=== PATIENT | female | born 1940 | race Caucasian/White ===

== ENCOUNTER 2018-08-05 07:01 | Day surgery (SDC) | payer OTHER, MEDICARE ==
[2018-07-29 11:12] VITALS: BMI 24.0
[2018-08-05] MEDS ORDERED: PHENYLEPHRINE 2.5% OPHTH SOLN 15 ML BOTTLE ONE (07:26)
[2018-08-05] MEDS ORDERED: CYCLOPENTOLATE HCL 1% OPHTH SOLN 2 ML BOTTLE ONE (07:26)
[2018-08-05] MEDS ORDERED: TROPICAMIDE 1% OPHTH SOLN 15 ML BOTTLE ONE (07:26)
[2018-08-05] MEDS ORDERED: GENTAMICIN SULFATE 0.3% OPHTHALMIC (EYE DROPS) 5ML BOTTLE ONE (07:26)
[2018-08-05] MEDS: CYCLOPENTOLATE HCL 1% OPHTH SOLN 2 ML BOTTLE OS SCH ×5 (08:15→08:35)
[2018-08-05] MEDS: GENTAMICIN SULFATE 0.3% OPHTHALMIC (EYE DROPS) 5ML BOTTLE OS SCH ×5 (08:15→08:35)
[2018-08-05] MEDS: KETOROLAC TROMETHAMINE 0.5% EYE DROP 1 DROP DROPS OS SCH ×5 (08:15→08:35)
[2018-08-05] MEDS: PHENYLEPHRINE 2.5% OPHTH SOLN 15 ML BOTTLE OS SCH ×5 (08:15→08:35)
[2018-08-05] MEDS: TROPICAMIDE 1% OPHTH SOLN 15 ML BOTTLE OS SCH ×5 (08:15→08:35)
[2018-08-05] MEDS ORDERED: MIDAZOLAM HCL 2 MG/2 ML SINGLE DOSE VIAL ONE (09:10)
[2018-08-05] MEDS ORDERED: TETRACAINE 0.5% OPHTH SOLN 2 ML BOTTLE ONE (09:11)
[2018-08-05] MEDS ORDERED: EPI-SHUGARCAINE (EPINEPHRINE 0.025% & LIDOCAINE-PF 0.75%) 4ML ONE (09:11)
[2018-08-05] MEDS ORDERED: POVIDONE-IODINE 5% OPHTHALMIC PREP 30 ML SOLUTION ONE (09:11)
[2018-08-05] MEDS ORDERED: ACETYLCHOLINE 1:100 INTRA-OCUL 20 MG/2 ML KIT ONE (09:12)
[2018-08-05] MEDS ORDERED: ONDANSETRON 4 MG/2 ML VIAL IVPUSH PRN (10:42)
[2018-08-05] MEDS ORDERED: ACETAMINOPHEN 325 MG TABLET (FP) PO PRN (10:45)
[2018-08-05] MEDS ORDERED: ACETAMINOPHEN 325 MG TABLET (FP) ONE (10:58)
--- NOTE | 2018-08-05 11:18 | OP ---
DATE OF OPERATION: 08/05/2018 PREOPERATIVE DIAGNOSIS: Cataract, left eye. POSTOPERATIVE DIAGNOSIS: Cataract, left eye. PROCEDURE: Cataract extraction via phacoemulsification with insertion of posterior chamber lens implant, left eye. SURGEON: Abe Queen MD PET CARE ASSISTANT: Mago Flores MD ANESTHESIA: Topical with sedation. ESTIMATED BLOOD LOSS: Less than 1 mL. COMPLICATIONS: None. SPECIMENS: None. DESCRIPTION OF PROCEDURE: The patient was identified in the holding area. After all risks, benefits, and alternatives were explained to the patient, informed consent was obtained. The left eye was marked with a marking pen. The patient then entered the operating room on an eye stretcher. After a formal time-out was performed, the patient was instructed to sit up, and topical tetracaine eye drops were instilled onto the left eye. The left eye was then properly marked for the cardinal axes of astigmatism using a marking pen and a Toric Bubble Marker. The patient then was instructed to lie back down. The left eye was then prepped and draped in the usual sterile fashion. An eyelid speculum was placed beneath the eyelids of the left eye. An inferotemporal paracentesis incision was created using a 15-degree blade, prior to this the eye was marked using a Toric Marker for the axis of astigmatism as well as a Toric Dial. It was noted to be 10 degrees. Then, preservative-free epinephrine and preservative-free lidocaine was then injected into the anterior chamber. A 2.4-mm keratome blade was then used to make a superotemporal incision. Viscoelastic was then injected into the anterior chamber. A 360-degree continuous curvilinear capsulorrhexis was then created using bent cystotome and Utrata forceps. Hydrodissection was performed using balanced saline solution on a cannula. Phacoemulsification was introduced to disassemble and remove the nucleus in its entirety. Irrigation/aspiration was then used to remove any remaining cortical material from the eye. The capsular bag was reformed using viscoelastic. An Will model SV25T3 with a power of 25.5 diopters, serial number [id number], was inspected and found to be defect-free and injected into the capsular bag. Irrigation/aspiration was then used to remove any remaining viscoelastic from the eye. The anterior chamber was reformed using balanced saline solution Intracameral injections with Miochol and Miostat were then administered, and the pupil came down and was round. The lens was rotated so that the optic markings for the astigmatism were lined up with the axis of astigmatism on the cornea, which was determined to be 10 degrees. Once the lens was determined to be in perfectly centered and appropriate position in regards to astigmatism, then, all wounds were hydrated with balanced saline solution, noted to be watertight. Upon inspection, the lens was perfectly centered in the capsular bag, the lens was perfectly oriented to the axis of astigmatism, matched 10 degrees on the cornea. There was a red reflex present. The eye had adequate pressure, and all wounds were water-sealed. Topical antibiotic eye drops and ointment were then administered to the left eye, and prior to this, the lens was made to be perfectly centered using the Purkinje images from the microscope on the center of the optic. Then, the eyelid speculum was removed from the left eye. The left eye was shielded. The patient tolerated the procedure well and left the operating room in stable condition to follow up in the eye clinic tomorrow morning at 10:00. ABE QUEEN M.D. [id number]
[2018-08-05 11:37] VITALS: BP 125/75; PULSE 74; TEMP 98
== END 2018-08-05 11:48 | disposition home or self-care (01) ==
LOC: FASU 07:01
PROVIDERS: ATTEND Ophthalmology
PROC: 08RK3JZ Replacement of Left Lens with Synthetic Substitute, Percutaneous Approach (ICD-10-PCS; principal; 2018-08-05 09:00)
DX: H26.9 Unspecified cataract (principal)